=== PATIENT | female | born 2000 | race African-American/Black ===

== ENCOUNTER 2024-04-02 02:51 | Emergency (ER) | payer BC ==
[2024-04-02 23:00] LABS: Amphetamine Not Detected (NotDetected); Barbiturates Screen Not Detected (NotDetected); Benzodiazepine Screen Not Detected (NotDetected); Cocaine Metabolite Screen Not Detected (NotDetected); Methadone Not Detected (NotDetected); Methamphetamine Not Detected (NotDetected); Opiate Screen Not Detected (NotDetected); Oxycodone Screen Not Detected (NotDetected); Phencyclidine (PCP) Not Detected (NotDetected); THC/Cannabinoid Screen Detected (NotDetected); Tricyclic Screen Not Detected (NotDetected)
[2024-04-02 23:02] LABS: Red Blood Cell (RBC) Count 4.53 mill/uL (4.20-5.40); White Blood Cell (WBC) Count 4.3 10x3/uL (4.8-10.8)
[2024-04-02 23:03] LABS: #Monocytes 0.4 thou/uL (0.11-0.59); #Neutrophils 2.9 thou/uL (1.40-6.50); %Basophils 1.1 % (0.0-1.0); %Eosinophils 0.4 % (0.0-10.0); %Lymphocytes 23.2 % (21.0-51.0); %Monocytes 8.9 % (0.0-10.0); %Neutrophils 66.4 % (42.0-75.0); Hematocrit 37.5 % (36.0-47.0); Mean Corpuscular HGB CONC 32.1 g/dL (32.0-36.0); Mean Corpuscular Hemoglobin 26.5 pg (27.0-31.0); Mean Corpuscular Volume 82.7 fl (78.0-98.0); Platelet Count 235 10x3/uL (130-400); RBC Distribution Width 11.3 % (11.5-14.5)
[2024-04-02 23:04] LABS: Carbon Dioxide 25 mmol/L (22-29); Chloride 101 mmol/L (98-107); Lactic Acid 1.05 mmol/L (0.5-2.2); Potassium 3.4 mmol/L (3.5-5.1); Sodium 139 mmol/L (136-145)
[2024-04-02 23:05] LABS: ALT (SGPT) 11 U/L (8-55); AST (SGOT) 20 U/L (5-34); Acetaminophen Less than 10 mcg/mL (Less than 10); Albumin 4.2 g/dL (3.5-5.0); Alcohol Less than 10.0 mg/dL (Less than 10); Alkaline Phosphatase 36 U/L (40-110); Anion Gap 16 mmol/L (10-20); BUN (Urea Nitrogen) 13 mg/dL (7.0-18.7); Bilirubin, Total 0.6 mg/dL (0.2-1.2); Calc. Creatinine Clearance 0 mL/min (70-130); Calcium 9.4 mg/dL (7.6-10.4); Estimated GFR 74; Globulin 3.9 g/dL (2.4-3.5); Glucose 79 mg/dL (70-105); Protein, Total 8.1 g/dL (6.0-8.3); Salicylate Less than 8.0 mg/dL (Less than 8.0)
[2024-04-02 23:11] LABS: Pregnancy Test - Urine (BHCG) Negative (Negative)
[2024-04-02 23:12] LABS: Pregu Control Background? CLEAR/WHITE (CLR/WHITE); Pregu Control Bar Appear? YES (CONTROL BAR); Specific Gravity 1.036 (1.002-1.036)
== END 2024-04-02 20:25 | disposition home or self-care (01) ==
LOC: NAV ERS 02:51
DX: T43.202A Poisoning by unspecified antidepressants, intentional self-harm, initial encounter (principal)
CPT/HCPCS: 80053; 80306; 80307; 81025; 83605; 84443; 85025; 99284